=== PATIENT | female | born 1985 | race Caucasian/White ===

== ENCOUNTER 2017-04-21 14:31 | Emergency (ER) | payer OTHER ==
[~2017-04-21] VITALS: Ht 162.6 cm; Wt 83.9 kg
[~2017-04-21 14:31] MED LIST: ABAC300 PO; ACEBUTCAFT PO; ACET325 PO; ACET500 PO; ALBU90I INH; ALBU90OI; ALBU90OI INH; ALBU90OI6 INH; AMOCLA875 PO; AMOX500 PO; AMOX875 PO; ATOR10; AZIT250 PO; Amoxicillin500 MG PO; Augmentin 875-1 EACH PO; BCP; CEFU250 PO; CEPH500 PO; CODBUTACEC PO; CODGUAEL PO; CYCL10 PO; Cleocin HCl300 MG PO; Crutch1 EACH MISC; DIAZ5 PO; DICL75ER PO; DOXY100 PO; DULO30 PO; Daypro600 MG PO; FIORICET 50-301 EACH PO; FLUT.05NI; Flonase 0.05% N16 GM; GUAI120S1 PO; HYDACE5 PO; HYDACE5325 PO; IBUP600 PO; IBUP800 PO; IMPLANON SQ; Keflex500 MG PO; LEVSOD25 PO; LIDO2L PO; MEDR150I IM; METPRE4DP PO; MOMENI; NAPR375 PO; NAPR500 PO; NAPR500EC PO; NEXPLANON68 MG SQ; Naprosyn500 MG PO; Norco 5-325 Ta1 EACH PO; ONDA4 PO; ORTHOCYCLINE; OXYACE5T PO; PENVK500 PO; PRED20 PO; PREN-16 PO; PROACE100 PO; PROM25 PO; Percocet 5-3251 EACH PO; Prednisone20 MG PO; RXALBOI INH; RXCODGUASY PO; RXHYD5325 PO; RXHYDACE PO; RXNAPNA550 PO; RXPROACE PO; SULTRIDS PO; TOPI50 PO; TRAM50 PO; Ultram50 MG PO; Vibramycin100 MG PO; Z PAK; [UNRECOGNIZED DRUG - OTHER]; [UNRECOGNIZED DRUG - OTHER]
[2017-04-21] MEDS ORDERED: Vibramycin100 MG PO (15:29)
[2017-04-21] MEDS ORDERED: Nasonex17 GM (15:29)
[2017-04-21] MEDS ORDERED: Cheratussin AC118 ML PO (15:29)
[2017-04-21] MEDS ORDERED: Sudogest30 MG PO (15:29)
[2018-01-27] MEDS ORDERED: ATOR20 PO (07:51)
[2018-01-27] MEDS ORDERED: Voltaren100 GM TOP (09:17)
[2018-01-27] MEDS ORDERED: Robaxin500 MG PO (09:17)
== END 2017-04-21 15:35 | disposition home or self-care (01) ==
LOC: ER 14:31
DX: J01.90 Acute sinusitis, unspecified (principal); H65.93 Unspecified nonsuppurative otitis media, bilateral; J45.909 Unspecified asthma, uncomplicated; F17.210 Nicotine dependence, cigarettes, uncomplicated; Z88.1 Allergy status to other antibiotic agents; Z88.5 Allergy status to narcotic agent; Z79.899 Other long term (current) drug therapy; Z79.2 Long term (current) use of antibiotics
CPT/HCPCS: 99283

== ENCOUNTER 2017-08-08 19:12 | Emergency (ER) | payer MEDICAID ==
[~2017-08-08] VITALS: Ht 170.2 cm; Wt 68.0 kg
[~2017-08-08 19:12] MED LIST changes: +Cheratussin AC118 ML PO; +Nasonex17 GM; +Sudogest30 MG PO
[2017-08-08] MEDS ORDERED: DEBLITANE0.35 MG (19:48)
[2017-08-08] MEDS ORDERED: Percocet 5-3251 EACH PO (20:02)
== END 2017-08-08 20:08 | disposition home or self-care (01) ==
LOC: ER 19:12
DX: R07.81 Pleurodynia (principal); F17.210 Nicotine dependence, cigarettes, uncomplicated; Z88.0 Allergy status to penicillin; Z88.5 Allergy status to narcotic agent
CPT/HCPCS: 71101; 99283

== ENCOUNTER → 2018-01-05 | Outpatient (CLI) | payer OTHER ==
[~2018-01-05] MED LIST changes: +DEBLITANE0.35 MG
== END | disposition home or self-care (01) ==
LOC: LAB SHORT 16:31 → LAB EV 16:31
DX: J02.9 Acute pharyngitis, unspecified (principal)
CPT/HCPCS: 87070

== ENCOUNTER 2023-12-18 20:48 | Emergency (ER) | payer OTHER ==
[~2023-12-18] VITALS: Ht 162.6 cm; Wt 91.5 kg
[~2023-12-18 20:48] MED LIST changes: +ATOR20 PO; +Robaxin500 MG PO; +Voltaren100 GM TOP
[2023-12-18 22:46] LABS: BASOPHILS ABSOLUTE AUTO 0.03 K/mm3 (0.00-0.23); BASOPHILS PERCENT AUTO 0 % (0-2); EOSINOPHILS ABSOLUTE AUTO 0.07 K/mm3 (0.00-0.68); EOSINOPHILS PERCENT AUTO 1 % (0-6); Hematocrit 37.3 % (33.0-51.0); Hemoglobin 12.6 g/dL (11.5-16.0); IMMATURE GRAN ABSOLUTE AUTO 0.02 K/mm3 (0.00-0.10); IMMATURE GRAN PERCENT AUTO 0 % (0-1); LYMPHOCYTES ABSOLUTE AUTO 2.85 K/mm3 (0.84-5.20); LYMPHOCYTES PERCENT AUTO 26 % (21-46); MONOCYTES ABSOLUTE AUTO 1.06 K/mm3 (0.16-1.47); MONOCYTES PERCENT AUTO 10 % (4-13); Mean Corpuscular HGB 30.9 pg (26.0-34.0); Mean Corpuscular HGB Conc 33.8 g/dL (31.5-36.5); Mean Corpuscular Volume 91 fL (80-100); Mean Platelet Volume 9.7 fL (9.1-12.4); NEUTROPHILS ABSOLUTE AUTO 7.09 K/mm3 (1.96-9.15); NEUTROPHILS PERCENT AUTO 64 % (41-73); Platelet Count 319 K/mm3 (150-400); RDW Coefficient Variation 13.4 % (11.7-14.2); RDW Standard Deviation 45.1 fL (35.1-46.3); Red Blood Cell Count 4.08 M/mm3 (3.80-5.20); White Blood Cell Count 11.12 K/mm3 (4.00-11.30)
[2023-12-18 23:04] LABS: Source, Urine Clean Catch
[2023-12-18 23:17] LABS: Appearance, Urine Clear (Clear); Bilirubin, Urine Neg (Neg); Blood, Urine 4+ (Neg); Color, Urine Yellow (P-Yellow); Glucose Qualitative, Urine Neg (Neg); Ketones, Urine Neg (Neg); Leukocyte Esterase, Urine Neg (Neg); Nitrite, Urine Neg (Neg); Protein, Urine Neg (Neg); Urobilinogen, Urine NORM (Normal)
[2023-12-18 23:23] LABS: Albumin, Blood 3.8 g/dL (3.4-5.0); Albumin/Globulin Ratio 1.1 (0.8-1.8); Bilirubin, Total 0.5 mg/dL (0.1-1.0); Bun/Creatinine Ratio 15.2 (12.0-20.0); Calcium, Blood 8.9 mg/dL (8.5-10.1); Creatinine, Blood 0.53 mg/dL (0.40-1.00); Globulin, Blood 3.6 g/dL (2.2-4.0); Potassium, Blood 3.7 mmol/L (3.5-5.5); Total Protein, Blood 7.4 g/dL (6.4-8.2)
[2023-12-18 23:29] LABS: Amorphous Light (0-Heavy); Bacteria Few /hpf; Red Blood Cells, Urine 0-2 /hpf (0-2); Squamous Epithelial Cells Few /hpf (Few); White Blood Cells, Urine 0-2 /hpf (0-5)
[2023-12-18 23:30] LABS: U Amphetamine Screen DETECTED; U Methamphetamine Screen DETECTED
[2023-12-18 23:31] LABS: U Barbituate Screen Not Detected; U Benzodiazapine Screen Not Detected; U Buprenorphine Screen Not Detected; U Cannabinoids Screen Not Detected; U Cocaine Screen Not Detected; U Methadone Screen Not Detected; U Opiates Screen Not Detected; U Oxycodone Screen Not Detected; U Phencyclidine Screen Not Detected
[2023-12-18] MEDS ORDERED: PRENATAL TABLE1 EAC2 PO (23:42)
[2023-12-18 23:53] VITALS: BP 117/70
== END 2023-12-19 00:02 | disposition home or self-care (01) ==
LOC: ER 20:48
PROVIDERS: Student in an Organized Health Care Education/Training Program
DX: O20.9 Hemorrhage in early pregnancy, unspecified (principal); O09.521 Supervision of elderly multigravida, first trimester; O99.511 Diseases of the respiratory system complicating pregnancy, first trimester; J45.909 Unspecified asthma, uncomplicated; O99.351 Diseases of the nervous system complicating pregnancy, first trimester; G43.909 Migraine, unspecified, not intractable, without status migrainosus; O99.321 Drug use complicating pregnancy, first trimester; F15.90 Other stimulant use, unspecified, uncomplicated; F11.90 Opioid use, unspecified, uncomplicated; O99.331 Smoking (tobacco) complicating pregnancy, first trimester; F17.210 Nicotine dependence, cigarettes, uncomplicated; Z3A.09 9 weeks gestation of pregnancy; Z88.0 Allergy status to penicillin; Z88.8 Allergy status to other drugs, medicaments and biological substances; Z55.6 Problems related to health literacy; Z59.89 Other problems related to housing and economic circumstances
CPT/HCPCS: 76801; 76817; 80053; 81001; 81025; 84702; 85025; 86900; 86901; 99284-25

== ENCOUNTER 2024-04-11 16:09 | Observation (INO) | payer OTHER ==
[~2024-04-11 16:09] MED LIST changes: +PRENATAL TABLE1 EAC2 PO
[2024-04-11 16:17] VITALS: BP 140/75
[2024-04-11 17:15] LABS: BASOPHILS ABSOLUTE AUTO 0.02 K/mm3 (0.00-0.23); BASOPHILS PERCENT AUTO 0 % (0-2); EOSINOPHILS ABSOLUTE AUTO 0.05 K/mm3 (0.00-0.68); EOSINOPHILS PERCENT AUTO 0 % (0-6); Hematocrit 33.6 % (33.0-51.0); Hemoglobin 11.4 g/dL (11.5-16.0); IMMATURE GRAN ABSOLUTE AUTO 0.04 K/mm3 (0.00-0.10); IMMATURE GRAN PERCENT AUTO 0 % (0-1); LYMPHOCYTES ABSOLUTE AUTO 2.93 K/mm3 (0.84-5.20); LYMPHOCYTES PERCENT AUTO 25 % (21-46); MONOCYTES ABSOLUTE AUTO 1.05 K/mm3 (0.16-1.47); MONOCYTES PERCENT AUTO 9 % (4-13); Mean Corpuscular HGB Conc 33.9 g/dL (31.5-36.5); Mean Corpuscular Volume 91 fL (80-100); Mean Platelet Volume 9.8 fL (9.1-12.4); NEUTROPHILS ABSOLUTE AUTO 7.77 K/mm3 (1.96-9.15); NEUTROPHILS PERCENT AUTO 66 % (41-73); Platelet Count 292 K/mm3 (150-400); RDW Coefficient Variation 14.2 % (11.7-14.2); RDW Standard Deviation 47.8 fL (35.1-46.3); Red Blood Cell Count 3.68 M/mm3 (3.80-5.20); White Blood Cell Count 11.86 K/mm3 (4.00-11.30)
[2024-04-11 17:38] LABS: International Normalized Ratio 0.92; Prothrombin Time Results 9.9 Sec (9.7-11.5)
[2024-04-11 17:41] LABS: Albumin, Blood 2.7 g/dL (3.4-5.0); Albumin/Globulin Ratio 0.7 (0.8-1.8); Bilirubin, Total 0.5 mg/dL (0.1-1.0); Bun/Creatinine Ratio 11.1 (12.0-20.0); Calcium, Blood 8.1 mg/dL (8.5-10.1); Creatinine, Blood 0.54 mg/dL (0.40-1.00); Total Protein, Blood 6.7 g/dL (6.4-8.2)
[2024-04-11] MEDS ORDERED: Docusate Sodium 100 MG Cap PO PRN (18:30)
[2024-04-11] MEDS ORDERED: Acetaminophen 325 MG TABLET PO PRN (18:30)
[2024-04-11] MEDS ORDERED: Ondansetron 4 MG TAB PO PRN (18:30)
[2024-04-11 20:11] VITALS: BP 127/65
[2024-04-11 21:57] LABS: U Amphetamine Screen DETECTED; U Barbituate Screen Not Detected; U Benzodiazapine Screen Not Detected; U Buprenorphine Screen Not Detected; U Cannabinoids Screen Not Detected; U Cocaine Screen Not Detected; U Methadone Screen Not Detected; U Methamphetamine Screen DETECTED; U Opiates Screen Not Detected; U Oxycodone Screen Not Detected; U Phencyclidine Screen Not Detected
[2024-04-11 23:05] LABS: Chlamydia Trachomatis Urine NOT DETECTED (NOT DETECT); Neisseria Gonorrhoea Urine NOT DETECTED (NOT DETECT)
--- NOTE | 2024-04-11 23:17 | NUR ---
WENT TO ROUND ON PATIENT AT 2588, PATIENT AND SUPPORT PERSON WAS NO LONGER IN ROOM. PATIENTS BELONGS AND CLOTHES WERE ALSO GONE. NOTIFIED EARLY CHILDHOOD ASSISTANT AND ONCALL PROVIDER.
[2024-04-12] MEDS ORDERED: HydrALAZINE HCl 20 MG / ML 1ML Vial ONE (08:35)
[2024-04-12] MEDS ORDERED: Prenatal Vit/FE Fumarate/FA 1 Tab PO SCH (09:00)
[2024-04-13 17:15] LABS: HIV 1,2 COMBO ANTIGEN/ANTIBODY Negative (Negative)
[2024-04-13 18:35] LABS: HEPATITIS C AB CIA INTERP Negative (Negative); HEPATITIS C ANTIBODY CIA INDEX 0.14 IV
[2024-04-14 10:46] LABS: HEPATITIS B SURFACE ANTIBODY <3.10 IU/L
[2024-04-14 12:25] LABS: HEPATITIS B SURFACE ANTIGEN Negative (Negative)
== END 2024-04-11 22:00 | disposition left against medical advice (07) ==
LOC: BC 16:09 → OBS 16:09 → BC 18:27 → OBS 18:27 → BC 22:00
PROVIDERS: ADMIT Obstetrics & Gynecology
DX: O44.52 Low lying placenta with hemorrhage, second trimester (principal); Z3A.26 26 weeks gestation of pregnancy
CPT/HCPCS: 36415; 36416; 76805; 76817; 76830; 80053; 81003; 83036; 85025; 85610; 85730; 86592; 86762; 86803; 86850; 86900; 86901; 87210; 87340; 87389; 87491; 87591; 99214